=== PATIENT | male | born 1970 | race Caucasian/White ===

== ENCOUNTER 2018-11-17 10:51 | Observation (INO) | payer SELFPAY ==
[~2018-11-17] VITALS: Ht 175.3 cm; Wt 104.3 kg
[2018-11-17] MEDS ORDERED: IV NORMAL SALINE 1000ML BAG 1,000 ML IV SCH ×2 (11:38→21:30)
--- NOTE | 2018-11-17 11:46 | PHYS DOC ---
Past Medical History Past Medical History: Diabetes-Type II Additional Past Surgical Histo: Vasectomy Alcohol Use: None Adult General Chief Complaint Chief Complaint: ABDOMINAL PAIN HPI HPI Patient is a pleasant 47-year-old male, recently moved to this area from [place]. He states on Friday he began expressing right lower quadrant abdominal pain, radiating towards his groin. He has not had any nausea, vomiting, hematuria, or dysuria. He has not had any fevers or chills. The patient has been waxing and waning and seemed to worsen today. There are no alleviating or exacerbating factors to his symptoms. Review of Systems Review of Systems Constitutional: Denies fever or chills [] Eyes: Denies change in visual acuity, redness, or eye pain [] HENT: Denies nasal congestion or sore throat [] Respiratory: Denies cough or shortness of breath [] Cardiovascular:The patient denies any shortness of breath, chest pain, palpitations, or orthopnea GI: Denies nausea, vomiting, bloody stools or diarrhea [] : Denies dysuria or hematuria [] Musculoskeletal: Denies back pain or joint pain [] Integument: Denies rash or skin lesions [] Neurologic: Denies headache, focal weakness or sensory changes [] Endocrine: Denies polyuria or polydipsia [] All other systems were reviewed and found to be within normal limits, except as documented in this note. Current Medications Current Medications Current Medications Medications (Trade) Dose Ordered Sig/Dylon Start Time Stop Time Status Last Admin Dose Admin Ketorolac Tromethamine (Toradol 30mg Vial) 30 mg 1X ONCE 11/17/18 12:15 11/17/18 12:16 DC 11/17/18 12:26 30 MG Ondansetron HCl (Zofran) 4 mg 1X ONCE 11/17/18 12:15 11/17/18 12:16 DC 11/17/18 12:26 4 MG Piperacillin Sod/ Tazobactam Sod 3.375 gm/Sodium Chloride 50 ml @ 100 mls/hr 1X ONCE 11/17/18 13:15 11/17/18 13:44 11/17/18 13:23 100 MLS/HR Sodium Chloride 1,000 ml @ 1,000 mls/hr Q1H 11/17/18 11:38 11/17/18 12:37 DC 11/17/18 12:26 1,000 MLS/HR Allergies Allergies Allergies Coded Allergies Type Severity Reaction Last Updated Verified No Known Drug Allergies 11/17/18 No Physical Exam Physical Exam PHYSICAL EXAM: CONSTITUTIONAL: Well developed, well nourished HEAD: normocephalic, atraumatic EENT: PERRL, EOMI. Conjunctivae normal color, sclerae non-icteric; moist mucous membranes. NECK: Supple, non-tender; no meningismus. LUNGS: Lungs CTA, breathing even and unlabored. Normal air movement. HEART: Regular rate and rhythm, no murmur CHEST: No deformity; non-tender ABDOMEN: The abdomen is soft, there is diffuse tenderness to palpation to the right lower and right mid abdomen, including the right flank, without any rebound or guarding, the remainder of the abdomen is relatively soft and non- tender, no masses or bruits. EXTREM: Normal ROM; no deformity, no calf tenderness. Normal pulses palpable in all extremities. There is no pedal edema. SKIN: No rash; no diaphoresis NEURO: Alert; normal speech and cognition; CN's grossly intact; strength grossly intact without focal deficit. BACK: There is mild right-sided CVA TTP. Current Patient Data Vital Signs Vital Signs Date Time Temp Pulse Resp B/P (MAP) Pulse Ox O2 Delivery O2 Flow Rate FiO2 11/17/18 11:38 99.0 98 14 156/101 (119) 96 Room Air 99.0 Lab Values Laboratory Tests Test 11/17/18 11:00 11/17/18 12:19 Urine Collection Type Unknown Urine Color Yellow Urine Clarity Clear Urine pH 5.0 Urine Specific [place] 1.025 Urine Protein 30 mg/dL (NEG-TRACE) Urine Glucose (UA) >=1000 mg/dL (NEG) Urine Ketones (Stick) >=80 mg/dL (NEG) Urine Blood Small (NEG) Urine Nitrite Negative (NEG) Urine Bilirubin Small (NEG) Urine Urobilinogen Dipstick 0.2 mg/dL (0.2 mg/dL) Urine Leukocyte Esterase Negative (NEG) Urine RBC 1-2 /HPF (0-2) Urine WBC 1-4 /HPF (0-4) Urine Squamous Epithelial Cells Occ /LPF Urine Renal Epithelial Cells Few /LPF Urine Bacteria Few /HPF (0-FEW) Urine Hyaline Casts Few /HPF Urine Mucus Marked /LPF White Blood Count 12.0 x10^3/uL (4.0-11.0) H Red Blood Count 4.76 x10^6/uL (4.30-5.70) Hemoglobin 14.6 g/dL (13.0-17.5) Hematocrit 41.7 % (39.0-53.0) Mean Corpuscular Volume 88 fL (79-100) Mean Corpuscular Hemoglobin 31 pg (25-35) Mean Corpuscular Hemoglobin Concent 35 g/dL (31-37) Red Cell Distribution Width 13.2 % (11.5-14.5) Platelet Count 142 x10^3/uL (140-400) Neutrophils (%) (Auto) 77 % (31-73) H Lymphocytes (%) (Auto) 11 % (24-48) L Monocytes (%) (Auto) 11 % (0-9) H Eosinophils (%) (Auto) 1 % (0-3) Basophils (%) (Auto) 1 % (0-3) Neutrophils # (Auto) 9.2 x10^3/uL (1.8-7.7) H Lymphocytes # (Auto) 1.3 x10^3/uL (1.0-4.8) Monocytes # (Auto) 1.4 x10^3/uL (0.0-1.1) H Eosinophils # (Auto) 0.1 x10^3/uL (0.0-0.7) Basophils # (Auto) 0.1 x10^3/uL (0.0-0.2) Sodium Level 136 mmol/L (136-145) Potassium Level 3.9 mmol/L (3.5-5.1) Chloride Level 100 mmol/L (98-107) Carbon Dioxide Level 25 mmol/L (21-32) Anion Gap 11 (6-14) Blood Urea Nitrogen 15 mg/dL (8-26) Creatinine 0.9 mg/dL (0.7-1.3) Estimated GFR (Cockcroft-Gault) 91.3 BUN/Creatinine Ratio 17 (6-20) Glucose Level 232 mg/dL (70-99) H Calcium Level 9.1 mg/dL (8.5-10.1) Total Bilirubin 0.9 mg/dL (0.2-1.0) Aspartate Amino Transferase (AST) 10 U/L (15-37) L Alanine Aminotransferase (ALT) 16 U/L (16-63) Alkaline Phosphatase 67 U/L (46-116) Total Protein 6.9 g/dL (6.4-8.2) Albumin 3.4 g/dL (3.4-5.0) Albumin/Globulin Ratio 1.0 (1.0-1.7) Lipase 112 U/L (73-393) Laboratory Tests 11/17/18 12:19 Laboratory Tests 11/17/18 12:19 EKG EKG [] Radiology/Procedures Radiology/Procedures [PROCEDURE: CT ABDOMEN PELVIS WO CONTRAST EXAM: Abdomen and pelvis CT without intravenous contrast. HISTORY: Pain. TECHNIQUE: Computed tomographic images of the abdomen and pelvis were obtained without contrast. Multiplanar reformatting was performed. *One or more of the following individualized dose reduction techniques were utilized for this examination: 1. Automated exposure control. 2. Adjustment of the mA and/or kV according to patient size. 3. Use of iterative reconstruction technique. COMPARISON: None. FINDINGS: Evaluation of the lower thorax demonstrates no infiltrate or pleural effusion. There is a calcified granuloma within the left lower lobe. The heart is normal in size. There is hepatic steatosis. No suspicious hepatic lesion is seen. The liver is mildly enlarged. The gallbladder, pancreas and adrenal glands are unremarkable. The spleen is mildly enlarged. There is no evidence of nephrolithiasis or hydronephrosis. The urinary bladder is unremarkable. The aorta is normal in caliber. There is no lymphadenopathy. There is a dilated appendix with surrounding inflammatory stranding and trace fluid, consistent with acute appendicitis. No perforation or drainable fluid collection/abscess is seen. There is no suspicious osseous lesion. IMPRESSION: 1. Acute appendicitis. No perforation or drainable fluid collection/abscess is seen. 2. Hepatic steatosis and hepatomegaly. 3. Mild splenomegaly. This may be within normal limits for patient body habitus. ] Course & Med Decision Making Course & Med Decision Making Pertinent Labs and Imaging studies reviewed. (See chart for details) [] 1:15 PM: The patient's condition remained stable. Surgeon on-call paged for admission. The patient will be admitted to the hospitalist, per surgeon request. Dragon Disclaimer Dragon Disclaimer This electronic medical record was generated, in whole or in part, using a voice recognition dictation system. Departure Departure Impression: Primary Impression: Acute appendicitis Disposition: ADMITTED INPATIENT Admitting Physician: AYANNA Condition: STABLE Referrals: NO PCP (PCP) SCOOTER RADFORD MD Nov 17, 2018 11:46
[2018-11-17 11:57] LABS: BILIRUBIN,URINE SMALL (NEG); CLARITY,URINE CLEAR; COLOR,URINE YELLOW; NITRITE,URINE NEGATIVE (NEG); PROTEIN,URINE 30 mg/dL (NEG-TRACE); UROBILINOGEN,URINE 0.2 mg/dL (0.2 mg/dL)
[2018-11-17 12:04] LABS: HYALINE CASTS, URINE FEW /HPF; SQUAMOUS EPITHELIAL CELL,UR OCC /LPF
[2018-11-17 12:05] LABS: BACTERIA,URINE FEW /HPF (0-FEW)
[2018-11-17] MEDS ORDERED: ONDANSETRON PF 4 MG/2 ML VIAL. IV ONE (12:15)
[2018-11-17] MEDS ORDERED: KETOROLAC 30 MG/ML VIAL. IV ONE (12:15)
[2018-11-17 12:25] LABS: BASO # 0.1 x10^3/uL (0.0-0.2); BASO % 1 % (0-3); EOS # 0.1 x10^3/uL (0.0-0.7); EOS % 1 % (0-3); HEMATOCRIT 41.7 % (39.0-53.0); HEMOGLOBIN 14.6 g/dL (13.0-17.5); LYMPH # 1.3 x10^3/uL (1.0-4.8); LYMPH % 11 % (24-48); MEAN CORPUSCULAR HEMOGLOBIN 31 pg (25-35); MEAN CORPUSCULAR HGB CONC 35 g/dL (31-37); MEAN CORPUSCULAR VOLUME 88 fL (79-100); MONO # 1.4 x10^3/uL (0.0-1.1); MONO % 11 % (0-9); NEUT # 9.2 x10^3/uL (1.8-7.7); NEUT % 77 % (31-73); PLATELET COUNT 142 x10^3/uL (140-400); RED BLOOD COUNT 4.76 x10^6/uL (4.30-5.70); RED CELL DISTRIBUTION WIDTH 13.2 % (11.5-14.5)
--- NOTE | 2018-11-17 12:30 | RAD ---
EXAM: Abdomen and pelvis CT without intravenous contrast. HISTORY: Pain. TECHNIQUE: Computed tomographic images of the abdomen and pelvis were obtained without contrast. Multiplanar reformatting was performed. *One or more of the following individualized dose reduction techniques were utilized for this examination: 1. Automated exposure control. 2. Adjustment of the mA and/or kV according to patient size. 3. Use of iterative reconstruction technique. COMPARISON: None. FINDINGS: Evaluation of the lower thorax demonstrates no infiltrate or pleural effusion. There is a calcified granuloma within the left lower lobe. The heart is normal in size. There is hepatic steatosis. No suspicious hepatic lesion is seen. The liver is mildly enlarged. The gallbladder, pancreas and adrenal glands are unremarkable. The spleen is mildly enlarged. There is no evidence of nephrolithiasis or hydronephrosis. The urinary bladder is unremarkable. The aorta is normal in caliber. There is no lymphadenopathy. There is a dilated appendix with surrounding inflammatory stranding and trace fluid, consistent with acute appendicitis. No perforation or drainable fluid collection/abscess is seen. There is no suspicious osseous lesion. IMPRESSION: 1. Acute appendicitis. No perforation or drainable fluid collection/abscess is seen. 2. Hepatic steatosis and hepatomegaly. 3. Mild splenomegaly. This may be within normal limits for patient body habitus. Electronically signed by: Mayra Ramesh MD (11/17/2018 12:27 PM) [facility]
[2018-11-17 12:33] LABS: CALCIUM 9.1 mg/dL (8.5-10.1); CREATININE 0.9 mg/dL (0.7-1.3); GFR 91.3; POTASSIUM 3.9 mmol/L (3.5-5.1)
[2018-11-17 12:41] LABS: ALBUMIN 3.4 g/dL (3.4-5.0); TOTAL BILIRUBIN 0.9 mg/dL (0.2-1.0); TOTAL PROTEIN 6.9 g/dL (6.4-8.2)
[2018-11-17] MEDS ORDERED: PIPERACILLIN/TAZOBACTAM 3.375 GM in IV NORMAL SALINE 50ML 50 ML IV ONE (13:15)
[2018-11-17] MEDS ORDERED: MORPHINE SULFATE 4 MG/ML VIAL. IV PRN (13:45)
[2018-11-17] MEDS ORDERED: IV RINGERS,LACTATED 1000ML 1,000 ML IV ONE (13:45)
[2018-11-17] MEDS ORDERED: ONDANSETRON PF 4 MG/2 ML VIAL. IV PRN ×3 (13:45→21:30)
[2018-11-17 15:20] VITALS: BP 153/94
[2018-11-17] MEDS ORDERED: DEXTROSE 50% 25 GM / 50ML DISP.SYRIN. IV PRN (15:30)
[2018-11-17] MEDS ORDERED: IV DEXTROSE 5% 250 ML BAG. IV PRN (15:30)
[2018-11-17] MEDS ORDERED: MORPHINE SULFATE 2 MG/ML VIAL. IV PRN ×2 (15:30→17:15)
--- NOTE | 2018-11-17 15:37 | PDOC1 ---
History and Physical Date of Admission Date of Admission DATE: 11/17/18 TIME: 15:18 Identification/Chief Complaint Chief Complaint abdominal pain Problems: (1) Acute appendicitis Source Source: Patient History of Present Illness History of Present Illness 47 year old hx of DM, HTN who presents with right lower quadrant pain since Friday with radiation of pain throughout abdomen. no nausea vomiting diarrhea or fever. decreased PO intake for several days. no hx of abdominal sx. reports facial flushing. denies dysuria. hx of dm only on metformin. does not take his home lisinopril he is prescribed. denies any active chest pain, sob. good functional status. CT done in ED revealing acute appendicitis. surgeon called and asked hospitalized to admit. plan for sx later this evening. Past Medical History Past Medical History DM, HTN Past Surgical History Past Surgical History no prior sx Family History Family History reviewed and non-contributory Social History Smoke: No ALCOHOL: none Drugs: None Current Problem List Problem List Problems Medical Problems: (1) Acute appendicitis Status: Acute Current Medications Current Medications Current Medications Sodium Chloride 1,000 ml @ 1,000 mls/hr Q1H IV Last administered on 11/17/18at 12:26; Start 11/17/18 at 11:38; Stop 11/17/18 at 12:37; Status DC Ondansetron HCl (Zofran) 4 mg 1X ONCE IV Last administered on 11/17/18at 12:26; Start 11/17/18 at 12:15; Stop 11/17/18 at 12:16; Status DC Ketorolac Tromethamine (Toradol 30mg Vial) 30 mg 1X ONCE IV Last administered on 11/17/18at 12:26; Start 11/17/18 at 12:15; Stop 11/17/18 at 12:16; Status DC Piperacillin Sod/ Tazobactam Sod 3.375 gm/Sodium Chloride 50 ml @ 100 mls/hr 1X ONCE IV Last administered on 11/17/18at 13:23; Start 11/17/18 at 13:15; Stop 11/17/18 at 13:44; Status DC Ondansetron HCl (Zofran) 4 mg PRN Q8HRS PRN IV NAUSEA/VOMITING; Start 11/17/18 at 13:45; Stop 11/18/18 at 13:44 Morphine Sulfate (Morphine Sulfate) 4 mg PRN Q2HR PRN IV PAIN; Start 11/17/18 at 13:45; Stop 11/18/18 at 13:44 Ringer's Solution 1,000 ml @ 125 mls/hr 1X ONCE IV Last administered on 11/17/18at 14:01; Start 11/17/18 at 13:45; Stop 11/17/18 at 21:44 Allergies Allergies: Coded Allergies: No Known Drug Allergies (Unverified , 11/17/18) Vitals Vitals Vital Signs Date Time Temp Pulse Resp B/P (MAP) Pulse Ox O2 Delivery O2 Flow Rate FiO2 11/17/18 11:38 99.0 98 14 156/101 (119) 96 Room Air 99.0 Labs Labs Laboratory Tests Test 11/17/18 11:00 11/17/18 12:19 Urine Collection Type Unknown Urine Color Yellow Urine Clarity Clear Urine pH 5.0 Urine Specific [place] 1.025 Urine Protein 30 mg/dL (NEG-TRACE) Urine Glucose (UA) >=1000 mg/dL (NEG) Urine Ketones (Stick) >=80 mg/dL (NEG) Urine Blood Small (NEG) Urine Nitrite Negative (NEG) Urine Bilirubin Small (NEG) Urine Urobilinogen Dipstick 0.2 mg/dL (0.2 mg/dL) Urine Leukocyte Esterase Negative (NEG) Urine RBC 1-2 /HPF (0-2) Urine WBC 1-4 /HPF (0-4) Urine Squamous Epithelial Cells Occ /LPF Urine Renal Epithelial Cells Few /LPF Urine Bacteria Few /HPF (0-FEW) Urine Hyaline Casts Few /HPF Urine Mucus Marked /LPF White Blood Count 12.0 x10^3/uL (4.0-11.0) Red Blood Count 4.76 x10^6/uL (4.30-5.70) Hemoglobin 14.6 g/dL (13.0-17.5) Hematocrit 41.7 % (39.0-53.0) Mean Corpuscular Volume 88 fL (79-100) Mean Corpuscular Hemoglobin 31 pg (25-35) Mean Corpuscular Hemoglobin Concent 35 g/dL (31-37) Red Cell Distribution Width 13.2 % (11.5-14.5) Platelet Count 142 x10^3/uL (140-400) Neutrophils (%) (Auto) 77 % (31-73) Lymphocytes (%) (Auto) 11 % (24-48) Monocytes (%) (Auto) 11 % (0-9) Eosinophils (%) (Auto) 1 % (0-3) Basophils (%) (Auto) 1 % (0-3) Neutrophils # (Auto) 9.2 x10^3/uL (1.8-7.7) Lymphocytes # (Auto) 1.3 x10^3/uL (1.0-4.8) Monocytes # (Auto) 1.4 x10^3/uL (0.0-1.1) Eosinophils # (Auto) 0.1 x10^3/uL (0.0-0.7) Basophils # (Auto) 0.1 x10^3/uL (0.0-0.2) Sodium Level 136 mmol/L (136-145) Potassium Level 3.9 mmol/L (3.5-5.1) Chloride Level 100 mmol/L (98-107) Carbon Dioxide Level 25 mmol/L (21-32) Anion Gap 11 (6-14) Blood Urea Nitrogen 15 mg/dL (8-26) Creatinine 0.9 mg/dL (0.7-1.3) Estimated GFR (Cockcroft-Gault) 91.3 BUN/Creatinine Ratio 17 (6-20) Glucose Level 232 mg/dL (70-99) Calcium Level 9.1 mg/dL (8.5-10.1) Total Bilirubin 0.9 mg/dL (0.2-1.0) Aspartate Amino Transf (AST/SGOT) 10 U/L (15-37) Alanine Aminotransferase (ALT/SGPT) 16 U/L (16-63) Alkaline Phosphatase 67 U/L (46-116) Total Protein 6.9 g/dL (6.4-8.2) Albumin 3.4 g/dL (3.4-5.0) Albumin/Globulin Ratio 1.0 (1.0-1.7) Lipase 112 U/L (73-393) Laboratory Tests Test 11/17/18 11:00 11/17/18 12:19 Urine Collection Type Unknown Urine Color Yellow Urine Clarity Clear Urine pH 5.0 Urine Specific [place] 1.025 Urine Protein 30 mg/dL (NEG-TRACE) Urine Glucose (UA) >=1000 mg/dL (NEG) Urine Ketones (Stick) >=80 mg/dL (NEG) Urine Blood Small (NEG) Urine Nitrite Negative (NEG) Urine Bilirubin Small (NEG) Urine Urobilinogen Dipstick 0.2 mg/dL (0.2 mg/dL) Urine Leukocyte Esterase Negative (NEG) Urine RBC 1-2 /HPF (0-2) Urine WBC 1-4 /HPF (0-4) Urine Squamous Epithelial Cells Occ /LPF Urine Renal Epithelial Cells Few /LPF Urine Bacteria Few /HPF (0-FEW) Urine Hyaline Casts Few /HPF Urine Mucus Marked /LPF White Blood Count 12.0 x10^3/uL (4.0-11.0) Red Blood Count 4.76 x10^6/uL (4.30-5.70) Hemoglobin 14.6 g/dL (13.0-17.5) Hematocrit 41.7 % (39.0-53.0) Mean Corpuscular Volume 88 fL (79-100) Mean Corpuscular Hemoglobin 31 pg (25-35) Mean Corpuscular Hemoglobin Concent 35 g/dL (31-37) Red Cell Distribution Width 13.2 % (11.5-14.5) Platelet Count 142 x10^3/uL (140-400) Neutrophils (%) (Auto) 77 % (31-73) Lymphocytes (%) (Auto) 11 % (24-48) Monocytes (%) (Auto) 11 % (0-9) Eosinophils (%) (Auto) 1 % (0-3) Basophils (%) (Auto) 1 % (0-3) Neutrophils # (Auto) 9.2 x10^3/uL (1.8-7.7) Lymphocytes # (Auto) 1.3 x10^3/uL (1.0-4.8) Monocytes # (Auto) 1.4 x10^3/uL (0.0-1.1) Eosinophils # (Auto) 0.1 x10^3/uL (0.0-0.7) Basophils # (Auto) 0.1 x10^3/uL (0.0-0.2) Sodium Level 136 mmol/L (136-145) Potassium Level 3.9 mmol/L (3.5-5.1) Chloride Level 100 mmol/L (98-107) Carbon Dioxide Level 25 mmol/L (21-32) Anion Gap 11 (6-14) Blood Urea Nitrogen 15 mg/dL (8-26) Creatinine 0.9 mg/dL (0.7-1.3) Estimated GFR (Cockcroft-Gault) 91.3 BUN/Creatinine Ratio 17 (6-20) Glucose Level 232 mg/dL (70-99) Calcium Level 9.1 mg/dL (8.5-10.1) Total Bilirubin 0.9 mg/dL (0.2-1.0) Aspartate Amino Transf (AST/SGOT) 10 U/L (15-37) Alanine Aminotransferase (ALT/SGPT) 16 U/L (16-63) Alkaline Phosphatase 67 U/L (46-116) Total Protein 6.9 g/dL (6.4-8.2) Albumin 3.4 g/dL (3.4-5.0) Albumin/Globulin Ratio 1.0 (1.0-1.7) Lipase 112 U/L (73-393) VTE Prophylaxis Ordered VTE Prophylaxis Devices: No VTE Pharmacological Prophylaxi: Yes Assessment/Plan Assessment/Plan ASSESSMENT Acute Uncomplicated Appendicitis, No perforation or drainable fluid collection/abscess is seen. HTN, not on meds DM, on metformin PLAN: admit to medical floor bed IV zosyn given in ED prn morphine patient NPO SCDS to LE for DVT ppx watch sugars with SSI Problem Qualifiers (1) Acute appendicitis: Acute appendicitis type: unspecified acute appendicitis type Qualified Codes: K35.80 - Unspecified acute appendicitis BRITTANI ROCHA MD Nov 17, 2018 15:37
[2018-11-17] MEDS ORDERED: METF10007 PO (15:42)
[2018-11-17] MEDS ORDERED: FLU VAX QS 2019-20 (36MOS+)/PF 0.5 ML SYRINGE. VAX IM ONE (16:00)
[2018-11-17] MEDS ORDERED: IBUPROFEN 400 MG TABLET. PO PRN (16:15)
[2018-11-17] MEDS: INSULIN LISPRO 300 UNITS/3 ML VIAL. SQ SCH (17:00)
[2018-11-17] MEDS ORDERED: IV RINGERS,LACTATED 1000ML 1,000 ML IV SCH (17:09)
[2018-11-17] MEDS ORDERED: PROCHLORPERAZINE 10 MG/2 ML VIAL. IV PRN (17:15)
[2018-11-17] MEDS ORDERED: HYDROmorphone 2 MG/ML VIAL IV PRN (17:15)
[2018-11-17] MEDS ORDERED: LIDOCAINE 1% PF 2 ML VIAL. ID PRN (17:15)
[2018-11-17] MEDS ORDERED: fentaNYL PF VIAL 100 MCG/2 ML VIAL IV PRN (17:15)
[2018-11-17] MEDS ORDERED: ROCURONIUM 50 MG/5 ML VIAL. ONE (18:06)
[2018-11-17] MEDS ORDERED: LIDOCAINE 2% PF 5 ML VIAL. ONE (18:06)
[2018-11-17] MEDS ORDERED: PROPOFOL 20 ML IV ONE (18:06)
[2018-11-17] MEDS ORDERED: fentaNYL PF VIAL 100 MCG/2 ML VIAL ONE ×2 (18:18→20:24)
[2018-11-17 19:00] VITALS: BP 149/92
[2018-11-17] MEDS ORDERED: BUPIVACAINE-EPI 0.5%-1:200000 MPF 30 ML VIAL. INJ ONE (19:30)
--- NOTE | 2018-11-17 19:30 | PDOC2 ---
CONSULT Date of Consult Date of Consult DATE: 11/17/18 TIME: 19:26 Reason for Consult Reason for Consult: Appendicitis Referring Physician Referring Physician: Dr. Pizarro Identification/Chief Complaint Chief Complaint RLQ abd pain Source Source: Chart review, Patient History of Present Illness Reason for Visit: 47 yo M with c/o RLQ abd pain, beginning on 11/15. It has worsened and moved to [facility] [place]. No previous episodes. Past Medical History Cardiovascular: HTN Endocrine: Diabetes Past Surgical History Past Surgical History: Other (vasectomy) Family History Family History: No Significant Social History No ALCOHOL: none Drugs: None Current Problem List Problem List Problems Medical Problems: (1) Acute appendicitis Status: Acute Current Medications Current Medications Current Medications Sodium Chloride 1,000 ml @ 1,000 mls/hr Q1H IV Last administered on 11/17/18at 12:26; Start 11/17/18 at 11:38; Stop 11/17/18 at 12:37; Status DC Ondansetron HCl (Zofran) 4 mg 1X ONCE IV Last administered on 11/17/18at 12:26; Start 11/17/18 at 12:15; Stop 11/17/18 at 12:16; Status DC Ketorolac Tromethamine (Toradol 30mg Vial) 30 mg 1X ONCE IV Last administered on 11/17/18at 12:26; Start 11/17/18 at 12:15; Stop 11/17/18 at 12:16; Status DC Piperacillin Sod/ Tazobactam Sod 3.375 gm/Sodium Chloride 50 ml @ 100 mls/hr 1X ONCE IV Last administered on 11/17/18at 13:23; Start 11/17/18 at 13:15; Stop 11/17/18 at 13:44; Status DC Ondansetron HCl (Zofran) 4 mg PRN Q8HRS PRN IV NAUSEA/VOMITING; Start 11/17/18 at 13:45; Stop 11/18/18 at 13:44 Morphine Sulfate (Morphine Sulfate) 4 mg PRN Q2HR PRN IV PAIN; Start 11/17/18 at 13:45; Stop 11/18/18 at 13:44 Ringer's Solution 1,000 ml @ 125 mls/hr 1X ONCE IV Last administered on 11/17/18at 14:01; Start 11/17/18 at 13:45; Stop 11/17/18 at 21:44 Morphine Sulfate (Morphine Sulfate) 2 mg PRN Q2HR PRN IV PAIN MODERATE Last administered on 11/17/18at 17:15; Start 11/17/18 at 15:30 Insulin Human Lispro (HumaLOG) 0-7 UNITS TIDWMEALS SQ ; Start 11/17/18 at 17:00 Dextrose (Dextrose 50%-Water Syringe) 12.5 gm PRN Q15MIN PRN IV SEE COMMENTS; Start 11/17/18 at 15:30 Dextrose 250 ml PRN Q15MIN PRN IV SEE COMMENTS; Start 11/17/18 at 15:30 Influenza Virus Vaccine Quadrival (Afluria Quad 2019-20 (3yr Up) Syringe) 0.5 ml ONCE ONCE VAX IM ; Start 11/17/18 at 16:00; Stop 11/17/18 at 16:01; Status DC Ibuprofen (Motrin) 400 mg PRN Q8HRS PRN PO INFLAMMATION; Start 11/17/18 at 16:15 Ondansetron HCl (Zofran) 4 mg PRN Q6HRS PRN IV NAUSEA/VOMITING; Start 11/17/18 at 17:15; Stop 11/18/18 at 17:14 Fentanyl Citrate (Fentanyl 2ml Vial) 25 mcg PRN Q5MIN PRN IV MILD PAIN 1-3; Start 11/17/18 at 17:15; Stop 11/18/18 at 17:14 Fentanyl Citrate (Fentanyl 2ml Vial) 50 mcg PRN Q5MIN PRN IV MODERATE TO SEVERE PAIN; Start 11/17/18 at 17:15; Stop 11/18/18 at 17:14 Morphine Sulfate (Morphine Sulfate) 1 mg PRN Q10MIN PRN IV SEVERE PAIN 7-10; Start 11/17/18 at 17:15; Stop 11/18/18 at 17:14 Ringer's Solution 1,000 ml @ 30 mls/hr Q24H IV ; Start 11/17/18 at 17:09; Stop 11/18/18 at 05:08 Lidocaine HCl (Xylocaine-Mpf 1% 2ml Vial) 2 ml PRN 1X PRN ID PRIOR TO IV START; Start 11/17/18 at 17:15; Stop 11/18/18 at 17:14 Hydromorphone HCl (Dilaudid) 0.5 mg PRN Q10MIN PRN IV SEV PAIN, Second choice; Start 11/17/18 at 17:15; Stop 11/18/18 at 17:14 Prochlorperazine Edisylate (Compazine) 5 mg PACU PRN PRN IV NAUSEA, MRX1; Start 11/17/18 at 17:15; Stop 11/18/18 at 17:14 Propofol 20 ml @ As Directed STK-MED ONCE IV ; Start 11/17/18 at 18:06; Stop 11/17/18 at 18:06; Status DC Lidocaine HCl (Lidocaine Pf 2% Vial) 5 ml STK-MED ONCE .ROUTE ; Start 11/17/18 at 18:06; Stop 11/17/18 at 18:06; Status DC Rocuronium [place] (Zemuron) 50 mg STK-MED ONCE .ROUTE ; Start 11/17/18 at 18:06; Stop 11/17/18 at 18:07; Status DC Fentanyl Citrate (Fentanyl 2ml Vial) 100 mcg STK-MED ONCE .ROUTE ; Start 11/17/18 at 18:18; Stop 11/17/18 at 18:18; Status DC Bupivacaine HCl/ Epinephrine Bitart (Sensorcain-Epi 0.5%-1:[id number] Mpf) 30 ml 1X ONCE INJ ; Start 11/17/18 at 19:30; Stop 11/17/18 at 19:31 Active Scripts Active Reported Metformin Hcl 1,000 Mg Tablet 1,000 Mg PO [id number] Allergies Allergies: Coded Allergies: No Known Drug Allergies (Unverified , 11/17/18) ROS Gastrointestinal: Yes Abdominal Pain Physical Exam General: Alert, Oriented X3, Cooperative, moderate distress, Other (morbid obesity) HEENT: Atraumatic, EOMI Lungs: Normal air movement Abdomen: Soft, Other (TTP RLQ > RUQ) Extremities: No clubbing, No cyanosis Skin: No rashes, No breakdown Neuro: Normal speech, Sensation intact Psych/Mental Status: Mental status NL, Mood NL Vitals VITALS Vital Signs Date Time Temp Pulse Resp B/P (MAP) Pulse Ox O2 Delivery O2 Flow Rate FiO2 11/17/18 19:08 100.3 110 22 161/80 93 Room Air 100.3 Labs Labs Laboratory Tests Test 11/17/18 11:00 11/17/18 12:19 11/17/18 17:03 Urine Collection Type Unknown Urine Color Yellow Urine Clarity Clear Urine pH 5.0 Urine Specific [place] 1.025 Urine Protein 30 mg/dL (NEG-TRACE) Urine Glucose (UA) >=1000 mg/dL (NEG) Urine Ketones (Stick) >=80 mg/dL (NEG) Urine Blood Small (NEG) Urine Nitrite Negative (NEG) Urine Bilirubin Small (NEG) Urine Urobilinogen Dipstick 0.2 mg/dL (0.2 mg/dL) Urine Leukocyte Esterase Negative (NEG) Urine RBC 1-2 /HPF (0-2) Urine WBC 1-4 /HPF (0-4) Urine Squamous Epithelial Cells Occ /LPF Urine Renal Epithelial Cells Few /LPF Urine Bacteria Few /HPF (0-FEW) Urine Hyaline Casts Few /HPF Urine Mucus Marked /LPF White Blood Count 12.0 x10^3/uL (4.0-11.0) Red Blood Count 4.76 x10^6/uL (4.30-5.70) Hemoglobin 14.6 g/dL (13.0-17.5) Hematocrit 41.7 % (39.0-53.0) Mean Corpuscular Volume 88 fL (79-100) Mean Corpuscular Hemoglobin 31 pg (25-35) Mean Corpuscular Hemoglobin Concent 35 g/dL (31-37) Red Cell Distribution Width 13.2 % (11.5-14.5) Platelet Count 142 x10^3/uL (140-400) Neutrophils (%) (Auto) 77 % (31-73) Lymphocytes (%) (Auto) 11 % (24-48) Monocytes (%) (Auto) 11 % (0-9) Eosinophils (%) (Auto) 1 % (0-3) Basophils (%) (Auto) 1 % (0-3) Neutrophils # (Auto) 9.2 x10^3/uL (1.8-7.7) Lymphocytes # (Auto) 1.3 x10^3/uL (1.0-4.8) Monocytes # (Auto) 1.4 x10^3/uL (0.0-1.1) Eosinophils # (Auto) 0.1 x10^3/uL (0.0-0.7) Basophils # (Auto) 0.1 x10^3/uL (0.0-0.2) Sodium Level 136 mmol/L (136-145) Potassium Level 3.9 mmol/L (3.5-5.1) Chloride Level 100 mmol/L (98-107) Carbon Dioxide Level 25 mmol/L (21-32) Anion Gap 11 (6-14) Blood Urea Nitrogen 15 mg/dL (8-26) Creatinine 0.9 mg/dL (0.7-1.3) Estimated GFR (Cockcroft-Gault) 91.3 BUN/Creatinine Ratio 17 (6-20) Glucose Level 232 mg/dL (70-99) Calcium Level 9.1 mg/dL (8.5-10.1) Total Bilirubin 0.9 mg/dL (0.2-1.0) Aspartate Amino Transf (AST/SGOT) 10 U/L (15-37) Alanine Aminotransferase (ALT/SGPT) 16 U/L (16-63) Alkaline Phosphatase 67 U/L (46-116) Total Protein 6.9 g/dL (6.4-8.2) Albumin 3.4 g/dL (3.4-5.0) Albumin/Globulin Ratio 1.0 (1.0-1.7) Lipase 112 U/L (73-393) Glucose (Fingerstick) 174 mg/dL (70-99) Laboratory Tests Test 11/17/18 11:00 11/17/18 12:19 11/17/18 17:03 Urine Collection Type Unknown Urine Color Yellow Urine Clarity Clear Urine pH 5.0 Urine Specific [place] 1.025 Urine Protein 30 mg/dL (NEG-TRACE) Urine Glucose (UA) >=1000 mg/dL (NEG) Urine Ketones (Stick) >=80 mg/dL (NEG) Urine Blood Small (NEG) Urine Nitrite Negative (NEG) Urine Bilirubin Small (NEG) Urine Urobilinogen Dipstick 0.2 mg/dL (0.2 mg/dL) Urine Leukocyte Esterase Negative (NEG) Urine RBC 1-2 /HPF (0-2) Urine WBC 1-4 /HPF (0-4) Urine Squamous Epithelial Cells Occ /LPF Urine Renal Epithelial Cells Few /LPF Urine Bacteria Few /HPF (0-FEW) Urine Hyaline Casts Few /HPF Urine Mucus Marked /LPF White Blood Count 12.0 x10^3/uL (4.0-11.0) Red Blood Count 4.76 x10^6/uL (4.30-5.70) Hemoglobin 14.6 g/dL (13.0-17.5) Hematocrit 41.7 % (39.0-53.0) Mean Corpuscular Volume 88 fL (79-100) Mean Corpuscular Hemoglobin 31 pg (25-35) Mean Corpuscular Hemoglobin Concent 35 g/dL (31-37) Red Cell Distribution Width 13.2 % (11.5-14.5) Platelet Count 142 x10^3/uL (140-400) Neutrophils (%) (Auto) 77 % (31-73) Lymphocytes (%) (Auto) 11 % (24-48) Monocytes (%) (Auto) 11 % (0-9) Eosinophils (%) (Auto) 1 % (0-3) Basophils (%) (Auto) 1 % (0-3) Neutrophils # (Auto) 9.2 x10^3/uL (1.8-7.7) Lymphocytes # (Auto) 1.3 x10^3/uL (1.0-4.8) Monocytes # (Auto) 1.4 x10^3/uL (0.0-1.1) Eosinophils # (Auto) 0.1 x10^3/uL (0.0-0.7) Basophils # (Auto) 0.1 x10^3/uL (0.0-0.2) Sodium Level 136 mmol/L (136-145) Potassium Level 3.9 mmol/L (3.5-5.1) Chloride Level 100 mmol/L (98-107) Carbon Dioxide Level 25 mmol/L (21-32) Anion Gap 11 (6-14) Blood Urea Nitrogen 15 mg/dL (8-26) Creatinine 0.9 mg/dL (0.7-1.3) Estimated GFR (Cockcroft-Gault) 91.3 BUN/Creatinine Ratio 17 (6-20) Glucose Level 232 mg/dL (70-99) Calcium Level 9.1 mg/dL (8.5-10.1) Total Bilirubin 0.9 mg/dL (0.2-1.0) Aspartate Amino Transf (AST/SGOT) 10 U/L (15-37) Alanine Aminotransferase (ALT/SGPT) 16 U/L (16-63) Alkaline Phosphatase 67 U/L (46-116) Total Protein 6.9 g/dL (6.4-8.2) Albumin 3.4 g/dL (3.4-5.0) Albumin/Globulin Ratio 1.0 (1.0-1.7) Lipase 112 U/L (73-393) Glucose (Fingerstick) 174 mg/dL (70-99) Images Images CT c/w appendicitis Assessment/Plan Assessment/Plan Appendicitis agree with IVF, IV abx and admission Will plan laparoscopic versus open appendectomy. R/R/B/A d/w pt. Risks, including, but not limited to: bleeding, infection, damage to surrounding structures, risk of anesthesia, risk of , risk of open. He appears to understand, his questions are answered and he elects to proceed. Thanks for consult! SENTHIL DOWD MD Nov 17, 2018 19:30
[2018-11-17] MEDS ORDERED: MIDAZOLAM HCL/PF 2 MG/2 ML VIAL. ONE (19:43)
[2018-11-17] MEDS ORDERED: cefOXitin SODIUM IV Push 2 GM VIAL. IVP ONE (20:00)
[2018-11-17] MEDS ORDERED: GLYCOPYRROLATE 1 MG/5 ML VIAL. ONE (20:12)
[2018-11-17] MEDS ORDERED: SEVOFLURANE 61 TO 120 MINUTES. IH ONE (20:42)
[2018-11-17] MEDS ORDERED: ONDANSETRON PF 4 MG/2 ML VIAL. ONE (20:42)
[2018-11-17] MEDS ORDERED: DEXAMETHASONE SOD PHOS 4 MG/ML VIAL ONE (20:42)
[2018-11-17] MEDS ORDERED: PHENYLEPHRINE in 0.9% NACL PF 1 MG/10 ML SYRINGE. IV ONE (20:45)
[2018-11-17] MEDS: fentaNYL PF VIAL 100 MCG/2 ML VIAL IV PRN ×3 (21:25→21:49)
--- NOTE | 2018-11-17 21:28 | PDOC4 ---
OPERATIVE NOTE Date: Date: Nov 17, 2018 Pre-Op Diagnosis: Appendicitis Post-Op Diagnosis: same with localized peritonitis Procedure Performed: laparoscopic appendectomy Surgeon: Grey Dowd Anesthesia Type: GETA plus local Blood Loss: 50 Specimans Obtained: appendix Findings: indurated appendix with localized peritonitis, no obvious perforation Complications: none Operative Note: After obtaining informed consent, patient was taken to OR, induced under GETA and prepped in the usual fashion. 5 mm port placed LLQ and suprapubic, 12 port placed umbilical, all under laparoscopic guidance. Abdominal cavity was explored and otherwise unremarkable. Patient is morbidly obese, making the procedure somewhat difficult. Appendix was identified and somewhat gangrenous. No obvious perforation. Hard, woody edema noted in the area, c/w localized peritonitis, but no obvious pus. Appendix bluntly mobilized out of the deep pelvis. Defect created in mesoappendix and general load CHRIS was used to divide at the base of the cecum. Vascular load taken across mesoappendix. Appendix placed in bag, delivered and sent to pathology for evaluation. Copious irrigation. No evidence of bleeding or other pathology noted. Stable lines intact. Ports removed without bleeding. Fascia repaired with 0 vicryl. Skin repaired with 4 0 monocryl. Dressing placed. Patient tolerated procedure well and sent to PACU in stable condition. All counts correct. Wound class is 4, dirty. SENTHIL DOWD MD Nov 17, 2018 21:28
[2018-11-17] MEDS ORDERED: HYDROcodone/APAP 5/325MG 1 TAB TABLET PO PRN (21:30)
[2018-11-17] MEDS ORDERED: NALOXONE 0.4 MG/ML VIAL. IV PRN (21:30)
[2018-11-17] MEDS ORDERED: 0.9 % SODIUM CHLORIDE 10 ML DISP.SYRIN. IV PRN (21:30)
[2018-11-17] MEDS ORDERED: INSULIN LISPRO 100 UNIT/ML 3ML VIAL for OP,RR ONLY. SQ PRN (22:00)
[2018-11-17] MEDS: HEPARIN for SUB-Q USE 5,000 UNIT/ML VIAL. SQ SCH (22:00)
--- NOTE | 2018-11-17 22:15 | NUR ---
Report rcvd from Madison RN, and pt arrived to unit at 2210 via bed. Pt A&O, drowsy, and VSS, w/ increased heart rate upon admission to floor. Pt c/o mild pain, SCDs on and pt resting in bed, will continue to monitor.
[2018-11-17] MEDS: IV RINGERS,LACTATED 1000ML 1,000 ML IV SCH (22:52)
--- NOTE | 2018-11-17 22:52 | NUR ---
Patient's scheduled heparin non-administered d/t pt's post-op status, will continue to monitor.
[2018-11-17 23:00] VITALS: BP_SYST 143; BP_SYST 144; BP_DIAS 84; BP_DIAS 86
[2018-11-18] VITALS (10 sets, daily range): BP systolic 121–151; BP diastolic 70–86
[2018-11-18] MEDS: PIPERACILLIN/TAZOBACTAM 3.375 GM in IV NORMAL SALINE 50ML 50 ML IV SCH ×3 (00:23→12:24)
[2018-11-18 05:02] LABS: BASO % 0 % (0-3); EOS % 0 % (0-3); HEMATOCRIT 40.3 % (39.0-53.0); HEMOGLOBIN 13.8 g/dL (13.0-17.5); LYMPH # 0.6 x10^3/uL (1.0-4.8); LYMPH % 5 % (24-48); MEAN CORPUSCULAR HEMOGLOBIN 31 pg (25-35); MEAN CORPUSCULAR HGB CONC 34 g/dL (31-37); MEAN CORPUSCULAR VOLUME 90 fL (79-100); MONO # 1.1 x10^3/uL (0.0-1.1); MONO % 11 % (0-9); NEUT # 8.5 x10^3/uL (1.8-7.7); NEUT % 84 % (31-73); PLATELET COUNT 141 x10^3/uL (140-400); RED BLOOD COUNT 4.49 x10^6/uL (4.30-5.70); RED CELL DISTRIBUTION WIDTH 13.6 % (11.5-14.5); WHITE BLOOD COUNT 10.2 x10^3/uL (4.0-11.0)
[2018-11-18 05:20] LABS: CALCIUM 8.8 mg/dL (8.5-10.1); CREATININE 0.9 mg/dL (0.7-1.3); GFR 91.3; POTASSIUM 3.9 mmol/L (3.5-5.1)
[2018-11-18] MEDS: HEPARIN for SUB-Q USE 5,000 UNIT/ML VIAL. SQ SCH (06:25)
[2018-11-18] MEDS ORDERED: DOCUSATE SODIUM 100 MG CAPSULE. PO SCH (09:00)
[2018-11-18] MEDS ORDERED: HYDROcodone/APAP 5/325MG 1 TAB TABLET PO PRN (09:00)
[2018-11-18] MEDS: IV RINGERS,LACTATED 1000ML 1,000 ML IV SCH (09:13)
[2018-11-18] MEDS: INSULIN LISPRO 300 UNITS/3 ML VIAL. SQ SCH ×2 (09:19→12:29)
[2018-11-18] MEDS ORDERED: metFORMIN 500 MG TABLET PO SCH (09:30)
--- NOTE | 2018-11-18 12:05 | PDOC ---
PROGRESS NOTES Chief Complaint Chief Complaint POD # 1 s/p lap appy History of Present Illness History of Present Illness tolerating diet but claims no flatus yet BUt he is ambulatory and eager to go home LAbs post op ok PLAN: Await GS rounds Pain emds rx onc kessler in case he goes home today Vitals Vitals Vital Signs Date Time Temp Pulse Resp B/P (MAP) Pulse Ox O2 Delivery O2 Flow Rate FiO2 11/18/18 10:57 98.4 107 18 121/70 (87) 95 Room Air 98.4 11/18/18 01:00 10.0 Physical Exam General: Alert, Oriented X3, Cooperative, moderate distress, Other (morbid obesity) Heart: Regular rate, Normal S1, Normal S2 Lungs: Clear Abdomen: Soft, Other (TTP RLQ > RUQ) Extremities: No clubbing, No cyanosis Skin: No rashes, No breakdown Labs LABS Laboratory Tests Test 11/17/18 12:19 11/17/18 17:03 11/17/18 21:42 11/18/18 03:40 White Blood Count 12.0 x10^3/uL (4.0-11.0) 10.2 x10^3/uL (4.0-11.0) Red Blood Count 4.76 x10^6/uL (4.30-5.70) 4.49 x10^6/uL (4.30-5.70) Hemoglobin 14.6 g/dL (13.0-17.5) 13.8 g/dL (13.0-17.5) Hematocrit 41.7 % (39.0-53.0) 40.3 % (39.0-53.0) Mean Corpuscular Volume 88 fL (79-100) 90 fL (79-100) Mean Corpuscular Hemoglobin 31 pg (25-35) 31 pg (25-35) Mean Corpuscular Hemoglobin Concent 35 g/dL (31-37) 34 g/dL (31-37) Red Cell Distribution Width 13.2 % (11.5-14.5) 13.6 % (11.5-14.5) Platelet Count 142 x10^3/uL (140-400) 141 x10^3/uL (140-400) Neutrophils (%) (Auto) 77 % (31-73) 84 % (31-73) Lymphocytes (%) (Auto) 11 % (24-48) 5 % (24-48) Monocytes (%) (Auto) 11 % (0-9) 11 % (0-9) Eosinophils (%) (Auto) 1 % (0-3) 0 % (0-3) Basophils (%) (Auto) 1 % (0-3) 0 % (0-3) Neutrophils # (Auto) 9.2 x10^3/uL (1.8-7.7) 8.5 x10^3/uL (1.8-7.7) Lymphocytes # (Auto) 1.3 x10^3/uL (1.0-4.8) 0.6 x10^3/uL (1.0-4.8) Monocytes # (Auto) 1.4 x10^3/uL (0.0-1.1) 1.1 x10^3/uL (0.0-1.1) Eosinophils # (Auto) 0.1 x10^3/uL (0.0-0.7) 0.0 x10^3/uL (0.0-0.7) Basophils # (Auto) 0.1 x10^3/uL (0.0-0.2) 0.0 x10^3/uL (0.0-0.2) Sodium Level 136 mmol/L (136-145) 138 mmol/L (136-145) Potassium Level 3.9 mmol/L (3.5-5.1) 3.9 mmol/L (3.5-5.1) Chloride Level 100 mmol/L (98-107) 102 mmol/L (98-107) Carbon Dioxide Level 25 mmol/L (21-32) 20 mmol/L (21-32) Anion Gap 11 (6-14) 16 (6-14) Blood Urea Nitrogen 15 mg/dL (8-26) 15 mg/dL (8-26) Creatinine 0.9 mg/dL (0.7-1.3) 0.9 mg/dL (0.7-1.3) Estimated GFR (Cockcroft-Gault) 91.3 91.3 BUN/Creatinine Ratio 17 (6-20) Glucose Level 232 mg/dL (70-99) 200 mg/dL (70-99) Calcium Level 9.1 mg/dL (8.5-10.1) 8.8 mg/dL (8.5-10.1) Total Bilirubin 0.9 mg/dL (0.2-1.0) Aspartate Amino Transf (AST/SGOT) 10 U/L (15-37) Alanine Aminotransferase (ALT/SGPT) 16 U/L (16-63) Alkaline Phosphatase 67 U/L (46-116) Total Protein 6.9 g/dL (6.4-8.2) Albumin 3.4 g/dL (3.4-5.0) Albumin/Globulin Ratio 1.0 (1.0-1.7) Lipase 112 U/L (73-393) Glucose (Fingerstick) 174 mg/dL (70-99) 198 mg/dL (70-99) Test 11/18/18 07:39 11/18/18 11:25 Glucose (Fingerstick) 208 mg/dL (70-99) 257 mg/dL (70-99) Review of Systems Review of Systems post op soreness, rest 14 pt neg Assessment and Plan Assessmemt and Plan Problems Medical Problems: (1) Acute appendicitis Status: Acute Comment Review of Relevant I have reviewed the following items arline (where applicable) has been applied. Labs Laboratory Tests Test 11/17/18 11:00 11/17/18 12:19 11/17/18 17:03 11/17/18 21:42 Urine Collection Type Unknown Urine Color Yellow Urine Clarity Clear Urine pH 5.0 Urine Specific [place] 1.025 Urine Protein 30 mg/dL (NEG-TRACE) Urine Glucose (UA) >=1000 mg/dL (NEG) Urine Ketones (Stick) >=80 mg/dL (NEG) Urine Blood Small (NEG) Urine Nitrite Negative (NEG) Urine Bilirubin Small (NEG) Urine Urobilinogen Dipstick 0.2 mg/dL (0.2 mg/dL) Urine Leukocyte Esterase Negative (NEG) Urine RBC 1-2 /HPF (0-2) Urine WBC 1-4 /HPF (0-4) Urine Squamous Epithelial Cells Occ /LPF Urine Renal Epithelial Cells Few /LPF Urine Bacteria Few /HPF (0-FEW) Urine Hyaline Casts Few /HPF Urine Mucus Marked /LPF White Blood Count 12.0 x10^3/uL (4.0-11.0) Red Blood Count 4.76 x10^6/uL (4.30-5.70) Hemoglobin 14.6 g/dL (13.0-17.5) Hematocrit 41.7 % (39.0-53.0) Mean Corpuscular Volume 88 fL (79-100) Mean Corpuscular Hemoglobin 31 pg (25-35) Mean Corpuscular Hemoglobin Concent 35 g/dL (31-37) Red Cell Distribution Width 13.2 % (11.5-14.5) Platelet Count 142 x10^3/uL (140-400) Neutrophils (%) (Auto) 77 % (31-73) Lymphocytes (%) (Auto) 11 % (24-48) Monocytes (%) (Auto) 11 % (0-9) Eosinophils (%) (Auto) 1 % (0-3) Basophils (%) (Auto) 1 % (0-3) Neutrophils # (Auto) 9.2 x10^3/uL (1.8-7.7) Lymphocytes # (Auto) 1.3 x10^3/uL (1.0-4.8) Monocytes # (Auto) 1.4 x10^3/uL (0.0-1.1) Eosinophils # (Auto) 0.1 x10^3/uL (0.0-0.7) Basophils # (Auto) 0.1 x10^3/uL (0.0-0.2) Sodium Level 136 mmol/L (136-145) Potassium Level 3.9 mmol/L (3.5-5.1) Chloride Level 100 mmol/L (98-107) Carbon Dioxide Level 25 mmol/L (21-32) Anion Gap 11 (6-14) Blood Urea Nitrogen 15 mg/dL (8-26) Creatinine 0.9 mg/dL (0.7-1.3) Estimated GFR (Cockcroft-Gault) 91.3 BUN/Creatinine Ratio 17 (6-20) Glucose Level 232 mg/dL (70-99) Calcium Level 9.1 mg/dL (8.5-10.1) Total Bilirubin 0.9 mg/dL (0.2-1.0) Aspartate Amino Transf (AST/SGOT) 10 U/L (15-37) Alanine Aminotransferase (ALT/SGPT) 16 U/L (16-63) Alkaline Phosphatase 67 U/L (46-116) Total Protein 6.9 g/dL (6.4-8.2) Albumin 3.4 g/dL (3.4-5.0) Albumin/Globulin Ratio 1.0 (1.0-1.7) Lipase 112 U/L (73-393) Glucose (Fingerstick) 174 mg/dL (70-99) 198 mg/dL (70-99) Test 11/18/18 03:40 11/18/18 07:39 11/18/18 11:25 White Blood Count 10.2 x10^3/uL (4.0-11.0) Red Blood Count 4.49 x10^6/uL (4.30-5.70) Hemoglobin 13.8 g/dL (13.0-17.5) Hematocrit 40.3 % (39.0-53.0) Mean Corpuscular Volume 90 fL (79-100) Mean Corpuscular Hemoglobin 31 pg (25-35) Mean Corpuscular Hemoglobin Concent 34 g/dL (31-37) Red Cell Distribution Width 13.6 % (11.5-14.5) Platelet Count 141 x10^3/uL (140-400) Neutrophils (%) (Auto) 84 % (31-73) Lymphocytes (%) (Auto) 5 % (24-48) Monocytes (%) (Auto) 11 % (0-9) Eosinophils (%) (Auto) 0 % (0-3) Basophils (%) (Auto) 0 % (0-3) Neutrophils # (Auto) 8.5 x10^3/uL (1.8-7.7) Lymphocytes # (Auto) 0.6 x10^3/uL (1.0-4.8) Monocytes # (Auto) 1.1 x10^3/uL (0.0-1.1) Eosinophils # (Auto) 0.0 x10^3/uL (0.0-0.7) Basophils # (Auto) 0.0 x10^3/uL (0.0-0.2) Sodium Level 138 mmol/L (136-145) Potassium Level 3.9 mmol/L (3.5-5.1) Chloride Level 102 mmol/L (98-107) Carbon Dioxide Level 20 mmol/L (21-32) Anion Gap 16 (6-14) Blood Urea Nitrogen 15 mg/dL (8-26) Creatinine 0.9 mg/dL (0.7-1.3) Estimated GFR (Cockcroft-Gault) 91.3 Glucose Level 200 mg/dL (70-99) Calcium Level 8.8 mg/dL (8.5-10.1) Glucose (Fingerstick) 208 mg/dL (70-99) 257 mg/dL (70-99) Laboratory Tests Test 11/17/18 12:19 11/17/18 17:03 11/17/18 21:42 11/18/18 03:40 White Blood Count 12.0 x10^3/uL (4.0-11.0) 10.2 x10^3/uL (4.0-11.0) Red Blood Count 4.76 x10^6/uL (4.30-5.70) 4.49 x10^6/uL (4.30-5.70) Hemoglobin 14.6 g/dL (13.0-17.5) 13.8 g/dL (13.0-17.5) Hematocrit 41.7 % (39.0-53.0) 40.3 % (39.0-53.0) Mean Corpuscular Volume 88 fL (79-100) 90 fL (79-100) Mean Corpuscular Hemoglobin 31 pg (25-35) 31 pg (25-35) Mean Corpuscular Hemoglobin Concent 35 g/dL (31-37) 34 g/dL (31-37) Red Cell Distribution Width 13.2 % (11.5-14.5) 13.6 % (11.5-14.5) Platelet Count 142 x10^3/uL (140-400) 141 x10^3/uL (140-400) Neutrophils (%) (Auto) 77 % (31-73) 84 % (31-73) Lymphocytes (%) (Auto) 11 % (24-48) 5 % (24-48) Monocytes (%) (Auto) 11 % (0-9) 11 % (0-9) Eosinophils (%) (Auto) 1 % (0-3) 0 % (0-3) Basophils (%) (Auto) 1 % (0-3) 0 % (0-3) Neutrophils # (Auto) 9.2 x10^3/uL (1.8-7.7) 8.5 x10^3/uL (1.8-7.7) Lymphocytes # (Auto) 1.3 x10^3/uL (1.0-4.8) 0.6 x10^3/uL (1.0-4.8) Monocytes # (Auto) 1.4 x10^3/uL (0.0-1.1) 1.1 x10^3/uL (0.0-1.1) Eosinophils # (Auto) 0.1 x10^3/uL (0.0-0.7) 0.0 x10^3/uL (0.0-0.7) Basophils # (Auto) 0.1 x10^3/uL (0.0-0.2) 0.0 x10^3/uL (0.0-0.2) Sodium Level 136 mmol/L (136-145) 138 mmol/L (136-145) Potassium Level 3.9 mmol/L (3.5-5.1) 3.9 mmol/L (3.5-5.1) Chloride Level 100 mmol/L (98-107) 102 mmol/L (98-107) Carbon Dioxide Level 25 mmol/L (21-32) 20 mmol/L (21-32) Anion Gap 11 (6-14) 16 (6-14) Blood Urea Nitrogen 15 mg/dL (8-26) 15 mg/dL (8-26) Creatinine 0.9 mg/dL (0.7-1.3) 0.9 mg/dL (0.7-1.3) Estimated GFR (Cockcroft-Gault) 91.3 91.3 BUN/Creatinine Ratio 17 (6-20) Glucose Level 232 mg/dL (70-99) 200 mg/dL (70-99) Calcium Level 9.1 mg/dL (8.5-10.1) 8.8 mg/dL (8.5-10.1) Total Bilirubin 0.9 mg/dL (0.2-1.0) Aspartate Amino Transf (AST/SGOT) 10 U/L (15-37) Alanine Aminotransferase (ALT/SGPT) 16 U/L (16-63) Alkaline Phosphatase 67 U/L (46-116) Total Protein 6.9 g/dL (6.4-8.2) Albumin 3.4 g/dL (3.4-5.0) Albumin/Globulin Ratio 1.0 (1.0-1.7) Lipase 112 U/L (73-393) Glucose (Fingerstick) 174 mg/dL (70-99) 198 mg/dL (70-99) Test 11/18/18 07:39 11/18/18 11:25 Glucose (Fingerstick) 208 mg/dL (70-99) 257 mg/dL (70-99) Medications Current Medications Sodium Chloride 1,000 ml @ 1,000 mls/hr Q1H IV Last administered on 11/17/18at 12:26; Start 11/17/18 at 11:38; Stop 11/17/18 at 12:37; Status DC Ondansetron HCl (Zofran) 4 mg 1X ONCE IV Last administered on 11/17/18at 12:26; Start 11/17/18 at 12:15; Stop 11/17/18 at 12:16; Status DC Ketorolac Tromethamine (Toradol 30mg Vial) 30 mg 1X ONCE IV Last administered on 11/17/18at 12:26; Start 11/17/18 at 12:15; Stop 11/17/18 at 12:16; Status DC Piperacillin Sod/ Tazobactam Sod 3.375 gm/Sodium Chloride 50 ml @ 100 mls/hr 1X ONCE IV Last administered on 11/17/18at 13:23; Start 11/17/18 at 13:15; Stop 11/17/18 at 13:44; Status DC Ondansetron HCl (Zofran) 4 mg PRN Q8HRS PRN IV NAUSEA/VOMITING; Start 11/17/18 at 13:45; Stop 11/18/18 at 10:56; Status DC Morphine Sulfate (Morphine Sulfate) 4 mg PRN Q2HR PRN IV PAIN; Start 11/17/18 at 13:45; Stop 11/18/18 at 13:44 Ringer's Solution 1,000 ml @ 125 mls/hr 1X ONCE IV Last administered on 11/17/18at 14:01; Start 11/17/18 at 13:45; Stop 11/17/18 at 21:44; Status DC Morphine Sulfate (Morphine Sulfate) 2 mg PRN Q2HR PRN IV PAIN MODERATE Last administered on 11/17/18at 17:15; Start 11/17/18 at 15:30 Insulin Human Lispro (HumaLOG) 0-7 UNITS TIDWMEALS SQ Last administered on 11/18/18at 09:20; Start 11/17/18 at 17:00 Dextrose (Dextrose 50%-Water Syringe) 12.5 gm PRN Q15MIN PRN IV SEE COMMENTS; Start 11/17/18 at 15:30 Dextrose 250 ml PRN Q15MIN PRN IV SEE COMMENTS; Start 11/17/18 at 15:30 Influenza Virus Vaccine Quadrival (Afluria Quad 2019-20 (3yr Up) Syringe) 0.5 ml ONCE ONCE VAX IM ; Start 11/17/18 at 16:00; Stop 11/17/18 at 16:01; Status DC Ibuprofen (Motrin) 400 mg PRN Q8HRS PRN PO INFLAMMATION Last administered on 11/18/18at 06:25; Start 11/17/18 at 16:15 Ondansetron HCl (Zofran) 4 mg PRN Q6HRS PRN IV NAUSEA/VOMITING; Start 11/17/18 at 17:15; Stop 11/18/18 at 17:14 Fentanyl Citrate (Fentanyl 2ml Vial) 25 mcg PRN Q5MIN PRN IV MILD PAIN 1-3 Last administered on 11/17/18at 21:50; Start 11/17/18 at 17:15; Stop 11/18/18 at 17:14 Fentanyl Citrate (Fentanyl 2ml Vial) 50 mcg PRN Q5MIN PRN IV MODERATE TO SEVERE PAIN; Start 11/17/18 at 17:15; Stop 11/18/18 at 17:14 Morphine Sulfate (Morphine Sulfate) 1 mg PRN Q10MIN PRN IV SEVERE PAIN 7-10; S tart 11/17/18 at 17:15; Stop 11/18/18 at 17:14 Ringer's Solution 1,000 ml @ 30 mls/hr Q24H IV ; Start 11/17/18 at 17:09; Stop 11/18/18 at 05:08; Status DC Lidocaine HCl (Xylocaine-Mpf 1% 2ml Vial) 2 ml PRN 1X PRN ID PRIOR TO IV START; Start 11/17/18 at 17:15; Stop 11/18/18 at 17:14 Hydromorphone HCl (Dilaudid) 0.5 mg PRN Q10MIN PRN IV SEV PAIN, Second choice; Start 11/17/18 at 17:15; Stop 11/18/18 at 17:14 Prochlorperazine Edisylate (Compazine) 5 mg PACU PRN PRN IV NAUSEA, MRX1; Start 11/17/18 at 17:15; Stop 11/18/18 at 17:14 Propofol 20 ml @ As Directed STK-MED ONCE IV ; Start 11/17/18 at 18:06; Stop 11/17/18 at 18:06; Status DC Lidocaine HCl (Lidocaine Pf 2% Vial) 5 ml STK-MED ONCE .ROUTE ; Start 11/17/18 at 18:06; Stop 11/17/18 at 18:06; Status DC Rocuronium [place] (Zemuron) 50 mg STK-MED ONCE .ROUTE ; Start 11/17/18 at 18:06; Stop 11/17/18 at 18:07; Status DC Fentanyl Citrate (Fentanyl 2ml Vial) 100 mcg STK-MED ONCE .ROUTE ; Start 11/17/18 at 18:18; Stop 11/17/18 at 18:18; Status DC Bupivacaine HCl/ Epinephrine Bitart (Sensorcain-Epi 0.5%-1:389163 Mpf) 30 ml 1X ONCE INJ Last administered on 11/17/18at 21:08; Start 11/17/18 at 19:30; Stop 11/17/18 at 19:31; Status DC Midazolam HCl (Versed) 2 mg STK-MED ONCE .ROUTE ; Start 11/17/18 at 19:43; Stop 11/17/18 at 19:43; Status DC Cefoxitin Sodium (Mefoxin) 2 gm 1X ONCE IVP Last administered on 11/17/18at 21:25; Start 11/17/18 at 20:00; Stop 11/17/18 at 20:01; Status DC Glycopyrrolate (Robinul) 1 mg STK-MED ONCE .ROUTE ; Start 11/17/18 at 20:12; Stop 11/17/18 at 20:12; Status DC Fentanyl Citrate (Fentanyl 2ml Vial) 100 mcg STK-MED ONCE .ROUTE ; Start 11/17/18 at 20:24; Stop 11/17/18 at 20:24; Status DC Sevoflurane (Ultane) 60 ml STK-MED ONCE IH ; Start 11/17/18 at 20:42; Stop 11/17/18 at 20:42; Status DC Dexamethasone Sodium Phosphate (Decadron) 4 mg STK-MED ONCE .ROUTE ; Start 11/17/18 at 20:42; Stop 11/17/18 at 20:42; Status DC Ondansetron HCl (Zofran) 4 mg STK-MED ONCE .ROUTE ; Start 11/17/18 at 20:42; Stop 11/17/18 at 20:43; Status DC Phenylephrine HCl (PHENYLEPHRINE in 0.9% NACL PF) 1 mg STK-MED ONCE IV ; Start 11/17/18 at 20:45; Stop 11/17/18 at 20:46; Status DC Heparin Sodium (Porcine) (Heparin Sodium) 5,000 unit Q8HRS SQ Last administered on 11/18/18at 06:25; Start 11/17/18 at 22:00; Stop 11/18/18 at 08:58; Status DC Sodium Chloride (Normal Saline Flush) 3 ml QSHIFT PRN IV AFTER MEDS AND BLOOD DRAWS; Start 11/17/18 at 21:30 Ringer's Solution 1,000 ml @ 100 mls/hr Q10H IV Last administered on 11/18/18at 09:19; Start 11/17/18 at 21:30 Acetaminophen/ Hydrocodone Bitart (Lortab 5/325) 1 tab PRN Q4HRS PRN PO MILD PAIN 1-3; Start 11/17/18 at 21:30 Naloxone HCl (Narcan) 0.4 mg PRN Q2MIN PRN IV SEE INSTRUCTIONS; Start 11/17/18 at 21:30 Sodium Chloride 1,000 ml @ 25 mls/hr Q24H IV ; Start 11/17/18 at 21:30 Docusate Sodium (Colace) 100 mg BID PO Last administered on 11/18/18at 09:19; Start 11/18/18 at 09:00 Ondansetron HCl (Zofran) 4 mg PRN Q6HRS PRN IV NAUESA, 1ST CHOICE; Start 11/17/18 at 21:30 Piperacillin Sod/ Tazobactam Sod 3.375 gm/Sodium Chloride 50 ml @ 100 mls/hr Q6HRS IV Last administered on 11/18/18at 06:25; Start 11/18/18 at 00:00 Insulin Human Lispro (HumaLOG VIAL for OP,RR ONLY) 0-10 units PRN Q1HR PRN SQ PER PROTOCOL Last administered on 11/17/18at 21:54; Start 11/17/18 at 22:00; Stop 11/18/18 at 21:59 Acetaminophen/ Hydrocodone Bitart (Lortab 5/325) 1 tab PRN Q4HRS PRN PO MODERATE PAIN; Start 11/18/18 at 09:00 Metformin HCl (Glucophage) 1,000 mg DAILYWBKFT PO Last administered on 11/18/18at 11:01; Start 11/18/18 at 09:30 Active Scripts Active Reported Metformin Hcl 1,000 Mg Tablet 1,000 Mg PO DAILYWBKFT Vitals/I & O Vital Sign - Last 24 Hours 11/17/18 11/17/18 11/17/18 11/17/18 12:30 13:30 14:30 15:20 Temp 98.3 98.3 Pulse 100 102 100 98 Resp 16 16 16 18 B/P (MAP) 142/88 (106) 148/91 (110) 154/90 (111) 153/94 (113) Pulse Ox 96 96 98 98 O2 Delivery Room Air Room Air Room Air Room Air 11/17/18 11/17/18 11/17/18 11/17/18 16:00 17:15 18:12 19:00 Temp 99.7 99.7 Pulse 98 B/P (MAP) 149/92 (111) Pulse Ox 93 O2 Delivery Room Air Room Air Room Air Room Air 11/17/18 11/17/18 11/17/18 11/17/18 19:08 21:10 21:18 21:25 Temp 100.3 97.9 100.3 97.9 Pulse 110 103 92 Resp 22 16 18 B/P (MAP) 161/80 112/73 144/82 Pulse Ox 93 95 100 O2 Delivery Room Air Simple Mask Mask Simple Mask O2 Flow Rate 10 10 10 11/17/18 11/17/18 11/17/18 11/17/18 21:40 21:43 21:44 21:50 Pulse 104 Resp 20 22 20 20 B/P (MAP) 132/78 Pulse Ox 99 100 100 100 O2 Delivery Room Air Room Air Room Air Room Air O2 Flow Rate 10.0 10.0 10.0 11/17/18 11/17/18 11/17/18 11/17/18 21:55 22:45 23:00 23:00 Pulse 105 118 114 Resp 16 B/P (MAP) 128/80 144/86 (105) 143/84 (103) Pulse Ox 100 92 93 O2 Delivery Room Air Room Air Room Air Room Air O2 Flow Rate 10.0 11/18/18 11/18/18 11/18/18 11/18/18 00:15 00:30 01:00 01:30 Pulse 112 118 118 120 B/P (MAP) 135/85 (102) 138/86 (103) 140/85 (103) 141/84 (103) Pulse Ox 90 95 93 93 O2 Flow Rate 10.0 10.0 11/18/18 11/18/18 11/18/18 11/18/18 02:00 03:00 04:37 07:16 Temp 99.7 99.4 99.4 97.9 99.7 99.4 99.4 97.9 Pulse 120 120 120 119 Resp 20 B/P (MAP) 131/80 (97) 132/81 (98) 132/81 (98) 131/81 (98) Pulse Ox 93 93 94 95 O2 Delivery Room Air 11/18/18 11/18/18 08:00 10:57 Temp 98.4 98.4 Pulse 107 Resp 18 B/P (MAP) 121/70 (87) Pulse Ox 95 O2 Delivery Room Air Room Air Intake and Output 11/17/18 11/17/18 11/18/18 15:00 23:00 07:00 Intake Total 1150 ml Output Total 75 ml 700 ml Balance 1075 ml -700 ml DEBBI CASANOVA MD Nov 18, 2018 12:05
[2018-11-18] MEDS ORDERED: AMOX1TAB58 PO (12:06)
[2018-11-18] MEDS ORDERED: HYDR-2761 PO (12:06)
--- NOTE | 2018-11-18 12:22 | NUR ---
SS following for discharge planning. SS reviewed pt chart. Pt is self pay pt. HCFS following for self pay status. Pt is from home and is currently on room air. No discharge needs noted at this time. SS will continue to follow for discharge planning.
--- NOTE | 2018-11-18 14:43 | PDOC ---
SURGICAL PROGRESS NOTE Subjective Pt with c/o abd pain, but improved over yesterday, kumar diet, requests d/c Vital Signs Vital Signs Date Time Temp Pulse Resp B/P (MAP) Pulse Ox O2 Delivery O2 Flow Rate FiO2 11/18/18 10:57 98.4 107 18 121/70 (87) 95 Room Air 98.4 11/18/18 01:00 10.0 I&O Intake and Output 11/18/18 07:00 Intake Total 1200 ml Output Total 775 ml Balance 425 ml Intake Oral 200 ml IV Total 1000 ml Output Urine Total 775 ml General: Alert, Oriented X3, Cooperative, No acute distress Abdomen: Soft, Other (mild TTP, dressing c/d/i) Labs Laboratory Tests Test 11/17/18 11:00 11/17/18 12:19 11/17/18 17:03 11/17/18 21:42 Urine Collection Type Unknown Urine Color Yellow Urine Clarity Clear Urine pH 5.0 Urine Specific [place] 1.025 Urine Protein 30 mg/dL (NEG-TRACE) Urine Glucose (UA) >=1000 mg/dL (NEG) Urine Ketones (Stick) >=80 mg/dL (NEG) Urine Blood Small (NEG) Urine Nitrite Negative (NEG) Urine Bilirubin Small (NEG) Urine Urobilinogen Dipstick 0.2 mg/dL (0.2 mg/dL) Urine Leukocyte Esterase Negative (NEG) Urine RBC 1-2 /HPF (0-2) Urine WBC 1-4 /HPF (0-4) Urine Squamous Epithelial Cells Occ /LPF Urine Renal Epithelial Cells Few /LPF Urine Bacteria Few /HPF (0-FEW) Urine Hyaline Casts Few /HPF Urine Mucus Marked /LPF White Blood Count 12.0 x10^3/uL (4.0-11.0) Red Blood Count 4.76 x10^6/uL (4.30-5.70) Hemoglobin 14.6 g/dL (13.0-17.5) Hematocrit 41.7 % (39.0-53.0) Mean Corpuscular Volume 88 fL (79-100) Mean Corpuscular Hemoglobin 31 pg (25-35) Mean Corpuscular Hemoglobin Concent 35 g/dL (31-37) Red Cell Distribution Width 13.2 % (11.5-14.5) Platelet Count 142 x10^3/uL (140-400) Neutrophils (%) (Auto) 77 % (31-73) Lymphocytes (%) (Auto) 11 % (24-48) Monocytes (%) (Auto) 11 % (0-9) Eosinophils (%) (Auto) 1 % (0-3) Basophils (%) (Auto) 1 % (0-3) Neutrophils # (Auto) 9.2 x10^3/uL (1.8-7.7) Lymphocytes # (Auto) 1.3 x10^3/uL (1.0-4.8) Monocytes # (Auto) 1.4 x10^3/uL (0.0-1.1) Eosinophils # (Auto) 0.1 x10^3/uL (0.0-0.7) Basophils # (Auto) 0.1 x10^3/uL (0.0-0.2) Sodium Level 136 mmol/L (136-145) Potassium Level 3.9 mmol/L (3.5-5.1) Chloride Level 100 mmol/L (98-107) Carbon Dioxide Level 25 mmol/L (21-32) Anion Gap 11 (6-14) Blood Urea Nitrogen 15 mg/dL (8-26) Creatinine 0.9 mg/dL (0.7-1.3) Estimated GFR (Cockcroft-Gault) 91.3 BUN/Creatinine Ratio 17 (6-20) Glucose Level 232 mg/dL (70-99) Calcium Level 9.1 mg/dL (8.5-10.1) Total Bilirubin 0.9 mg/dL (0.2-1.0) Aspartate Amino Transf (AST/SGOT) 10 U/L (15-37) Alanine Aminotransferase (ALT/SGPT) 16 U/L (16-63) Alkaline Phosphatase 67 U/L (46-116) Total Protein 6.9 g/dL (6.4-8.2) Albumin 3.4 g/dL (3.4-5.0) Albumin/Globulin Ratio 1.0 (1.0-1.7) Lipase 112 U/L (73-393) Glucose (Fingerstick) 174 mg/dL (70-99) 198 mg/dL (70-99) Test 11/18/18 03:40 11/18/18 07:39 11/18/18 11:25 White Blood Count 10.2 x10^3/uL (4.0-11.0) Red Blood Count 4.49 x10^6/uL (4.30-5.70) Hemoglobin 13.8 g/dL (13.0-17.5) Hematocrit 40.3 % (39.0-53.0) Mean Corpuscular Volume 90 fL (79-100) Mean Corpuscular Hemoglobin 31 pg (25-35) Mean Corpuscular Hemoglobin Concent 34 g/dL (31-37) Red Cell Distribution Width 13.6 % (11.5-14.5) Platelet Count 141 x10^3/uL (140-400) Neutrophils (%) (Auto) 84 % (31-73) Lymphocytes (%) (Auto) 5 % (24-48) Monocytes (%) (Auto) 11 % (0-9) Eosinophils (%) (Auto) 0 % (0-3) Basophils (%) (Auto) 0 % (0-3) Neutrophils # (Auto) 8.5 x10^3/uL (1.8-7.7) Lymphocytes # (Auto) 0.6 x10^3/uL (1.0-4.8) Monocytes # (Auto) 1.1 x10^3/uL (0.0-1.1) Eosinophils # (Auto) 0.0 x10^3/uL (0.0-0.7) Basophils # (Auto) 0.0 x10^3/uL (0.0-0.2) Sodium Level 138 mmol/L (136-145) Potassium Level 3.9 mmol/L (3.5-5.1) Chloride Level 102 mmol/L (98-107) Carbon Dioxide Level 20 mmol/L (21-32) Anion Gap 16 (6-14) Blood Urea Nitrogen 15 mg/dL (8-26) Creatinine 0.9 mg/dL (0.7-1.3) Estimated GFR (Cockcroft-Gault) 91.3 Glucose Level 200 mg/dL (70-99) Calcium Level 8.8 mg/dL (8.5-10.1) Glucose (Fingerstick) 208 mg/dL (70-99) 257 mg/dL (70-99) Laboratory Tests Test 11/17/18 17:03 11/17/18 21:42 11/18/18 03:40 11/18/18 07:39 Glucose (Fingerstick) 174 mg/dL (70-99) 198 mg/dL (70-99) 208 mg/dL (70-99) White Blood Count 10.2 x10^3/uL (4.0-11.0) Red Blood Count 4.49 x10^6/uL (4.30-5.70) Hemoglobin 13.8 g/dL (13.0-17.5) Hematocrit 40.3 % (39.0-53.0) Mean Corpuscular Volume 90 fL (79-100) Mean Corpuscular Hemoglobin 31 pg (25-35) Mean Corpuscular Hemoglobin Concent 34 g/dL (31-37) Red Cell Distribution Width 13.6 % (11.5-14.5) Platelet Count 141 x10^3/uL (140-400) Neutrophils (%) (Auto) 84 % (31-73) Lymphocytes (%) (Auto) 5 % (24-48) Monocytes (%) (Auto) 11 % (0-9) Eosinophils (%) (Auto) 0 % (0-3) Basophils (%) (Auto) 0 % (0-3) Neutrophils # (Auto) 8.5 x10^3/uL (1.8-7.7) Lymphocytes # (Auto) 0.6 x10^3/uL (1.0-4.8) Monocytes # (Auto) 1.1 x10^3/uL (0.0-1.1) Eosinophils # (Auto) 0.0 x10^3/uL (0.0-0.7) Basophils # (Auto) 0.0 x10^3/uL (0.0-0.2) Sodium Level 138 mmol/L (136-145) Potassium Level 3.9 mmol/L (3.5-5.1) Chloride Level 102 mmol/L (98-107) Carbon Dioxide Level 20 mmol/L (21-32) Anion Gap 16 (6-14) Blood Urea Nitrogen 15 mg/dL (8-26) Creatinine 0.9 mg/dL (0.7-1.3) Estimated GFR (Cockcroft-Gault) 91.3 Glucose Level 200 mg/dL (70-99) Calcium Level 8.8 mg/dL (8.5-10.1) Test 11/18/18 11:25 Glucose (Fingerstick) 257 mg/dL (70-99) Problem List Problems Medical Problems: (1) Acute appendicitis Status: Acute Assessment/Plan s/p lap appendectomy OK to d/c, but favor PO abx on d/c Pt at high risk for abscess, given localized peritonitis, DM, obesity d/w pt and pt's mother. SENTHIL DOWD MD Nov 18, 2018 14:43
--- NOTE | 2018-11-18 15:44 | NUR ---
pt is discharged home with self care at 1525 via wheelchair via [facility]. pt is in stable condition. pt has all belongings with him. pt received discharge instructions and prescriptions and stated he had no further questions for me.
--- NOTE | 2018-11-19 13:03 | PDOC3 ---
Discharge Summary Visit Information Date of Admission: Nov 17, 2018 Date of Discharge: Nov 18, 2018 Admitting Diagnosis Comment: POD # 1 s/p lap appy Final Diagnosis Problems Medical Problems: (1) Acute appendicitis Status: Acute Brief Hospital Course Allergies Allergies Coded Allergies Type Severity Reaction Last Updated Verified No Known Drug Allergies 11/17/18 No Vital Signs Vital Signs Date Time Temp Pulse Resp B/P (MAP) Pulse Ox O2 Delivery O2 Flow Rate FiO2 11/18/18 15:26 98.1 101 18 151/83 (105) 96 Room Air 98.1 Lab Results Laboratory Tests Test 11/17/18 17:03 11/17/18 21:42 11/18/18 03:40 11/18/18 07:39 Glucose (Fingerstick) 174 mg/dL (70-99) 198 mg/dL (70-99) 208 mg/dL (70-99) White Blood Count 10.2 x10^3/uL (4.0-11.0) Red Blood Count 4.49 x10^6/uL (4.30-5.70) Hemoglobin 13.8 g/dL (13.0-17.5) Hematocrit 40.3 % (39.0-53.0) Mean Corpuscular Volume 90 fL (79-100) Mean Corpuscular Hemoglobin 31 pg (25-35) Mean Corpuscular Hemoglobin Concent 34 g/dL (31-37) Red Cell Distribution Width 13.6 % (11.5-14.5) Platelet Count 141 x10^3/uL (140-400) Neutrophils (%) (Auto) 84 % (31-73) Lymphocytes (%) (Auto) 5 % (24-48) Monocytes (%) (Auto) 11 % (0-9) Eosinophils (%) (Auto) 0 % (0-3) Basophils (%) (Auto) 0 % (0-3) Neutrophils # (Auto) 8.5 x10^3/uL (1.8-7.7) Lymphocytes # (Auto) 0.6 x10^3/uL (1.0-4.8) Monocytes # (Auto) 1.1 x10^3/uL (0.0-1.1) Eosinophils # (Auto) 0.0 x10^3/uL (0.0-0.7) Basophils # (Auto) 0.0 x10^3/uL (0.0-0.2) Sodium Level 138 mmol/L (136-145) Potassium Level 3.9 mmol/L (3.5-5.1) Chloride Level 102 mmol/L (98-107) Carbon Dioxide Level 20 mmol/L (21-32) Anion Gap 16 (6-14) Blood Urea Nitrogen 15 mg/dL (8-26) Creatinine 0.9 mg/dL (0.7-1.3) Estimated GFR (Cockcroft-Gault) 91.3 Glucose Level 200 mg/dL (70-99) Calcium Level 8.8 mg/dL (8.5-10.1) Test 11/18/18 11:25 Glucose (Fingerstick) 257 mg/dL (70-99) Brief Hospital Course Mr. Cedeno is a 47 old pleasant male who had appendicitis and underwent lap appendectomy with no complications, intact appendix, home postop day #1, pain meds on chart Discharge Information Condition at Discharge: Improved, Stable Follow Up: Weeks (GS 2 weeks) Disposition/Orders: D/C to Home Scheduled Amoxicillin/Potassium Clav (Augmentin 500-125 Tablet) 1 Each Tablet, 1 TAB PO BI D for post appy, #14 Prescribed by: DEBBI CASANOVA on 11/18/18 1206 Metformin Hcl (Metformin Hcl) 1,000 Mg Tablet, 1,000 MG PO [id number] for ANTI- DIABETIC, Ref 0 (Reported) Entered as Reported by: KIRA MARIE on 11/17/18 1542 Last Action: Converted on 11/18/18 0857 by DEBBI CASANOVA Scheduled PRN Hydrocodone Bit/Acetaminophen (Hydrocodone-Apap 5-325 ) 1 Tab Tablet, 1 TAB PO PRN Q4HRS PRN for MILD PAIN 1-3, #30 Prescribed by: DEBBI CASANOVA on 11/18/18 1206 DEBBI CASANOVA MD Nov 19, 2018 13:03
--- NOTE | 2018-11-20 16:06 | PATHOLOGY ---
[facility] Accession Number: [id number] . 01 Material submitted: . appendix - APPENDIX . 01 Clinical history: . Acute appendicitis . 02 Diagnosis: Appendix, laparoscopic appendectomy: - Acute appendicitis with serosal exudate and acute meso-appendicitis. ([facility] 11/20/2018) [facility] 11/20/2018 1026 Local . 02 Comment: There is no evidence of rupture. There is no evidence of malignancy. ([facility] 11/20/2018) . 02 Electronically signed: . Jose Brenner MD, Pathologist NPI- [id number] . 01 Gross description: . The specimen is received in formalin, labeled "Michael Cedeno, appendix". Received is a vermiform appendix measuring 11.2 cm in length by up to 1.5 cm in diameter with a large amount of attached mesoappendix. The serosal surface is dusky prabhakar-carter and shaggy in appearance with a small amount of overlying exudate near the distal tip. The surgical margin is closed with a line of leah. The leah are removed the new margin is inked black. Sectioning reveals a dilated lumen filled with fecal material admixed with a slight amount of fibrinopurulent exudate. The specimen is submitted representatively A1 and A2, with the proximal margin and bisected tip submitted in cassette A1. ([facility]; 11/19/2018) QAC/QAC 11/20/2018 1024 Local . 02 Pathologist provided ICD-10: K35.80 . 02 CPT . 032914 Specimen Comment: A courtesy copy of this report has been sent to Specimen Comment: [phone], . Specimen Comment: Report sent to / DR RADFORD Performed at: 01 [facility] [address], [place], [place] [id number] MD Roberth Linder MD Phone: [phone] Performed at: 02 [facility] [address], [place] [id number] MD Jose Brenner MD Phone: [phone]
== END 2018-11-18 15:25 | disposition home or self-care (01) ==
LOC: ER 10:51 → 4 NORTH 13:40
PROVIDERS: ADMIT Internal Medicine; ATTEND Internal Medicine
PROC: 0DTJ4ZZ Resection of Appendix, Percutaneous Endoscopic Approach (ICD-10-PCS; principal; 2018-11-17 19:00)
DX: K35.80 Unspecified acute appendicitis (principal); K76.0 Fatty (change of) liver, not elsewhere classified; R16.0 Hepatomegaly, not elsewhere classified; R16.1 Splenomegaly, not elsewhere classified; I10 Essential (primary) hypertension; E66.01 Morbid (severe) obesity due to excess calories
CPT/HCPCS: 36415; 44970; 74176; 80048; 80053; 81001; 82962; 83690; 85025; 88304; 96365; 96366; 96372; 96375; 99284; A7015; G0378; J0694; J1100; J1644; J1815; J1885; J2001; J2250; J2270; J2370; J2405; J2543; J2704; J3010; J3490; J7030; J7120; G0379